=== PATIENT | male | born 1940 | race Caucasian/White ===

== ENCOUNTER 2022-04-13 14:00 | Observation (INO) ==
[2022-04-13] MEDS ORDERED: ONDANSETRON INJ 2 MG/ML 2 ML VIAL IV STA (14:21)
[2022-04-13] MEDS ORDERED: fentaNYL citrate 100 MCG/2 ML VIAL IV STA (14:21)
--- NOTE | 2022-04-13 14:24 | Emergency Department Note ---
History of Present Illness General Chief complaint: Chest Pain Stated complaint: CHEST PAIN Time Seen by Provider: 04/13/22 14:09 Source: patient Mode of arrival: EMS History of Present Illness Provider complaint: Chest pain Onset (ago): hour(s) Location: chest and right Radiation: neck and extremity Pain Consistency: + constant Maximum Pain Intensity: 6 Quality: + other (Intermittently sharp with an undercurrent of indescribable pain "like a flowing stream") Relieved By: + medication (Nitroglycerin and ambulance) Associated symptoms: + chest pain, + cough (Chronic cough for years) and + shortness of breath; no diaphoresis, no fever/chills or no nausea/vomiting This is an 82-year-old male who underwent cardiac catheterization and had a car diac stent placed April 02 in [facility] presenting with chest pain. 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 He describes the pain as a intermittent sharp pain with an undercurrent of pain that is difficult to describe "like a flowing stream." He states it is better after he received nitroglycerin in the ambulance x2. He also received 4 baby aspirin's in the ambulance. He still has some pain left. He had a little bit of shortness of breath with it but no diaphoresis, nausea or lightheadedness. He denies any recent illness, fever, abdominal pain, vomiting, diarrhea or urinary symptoms. He does state that he has a chronic cough which she has had for years and has had evaluated previously by his doctors. He does state that he has had some cramping calf pain and intermittent swelling since his hospitalization initially early March. 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 He does not know the circumstances or the cause of the DVT. He states he does not remember being on blood thinners at the time. He is currently on Brilinta which she has been taking. He denies any prior history of PE. He states the pain he is having today is similar to the pain that he had when he had to have his stent on April 02. It is located on the right side of his chest going down his right arm and into his right neck and jaw. He felt much better after catheterization but his states that he did have a recurrence of this chest pain 5 days ago and went back to [facility]. He was admitted but nothing abnormal was found and he was discharged home. He has not had the chest pain again until today. Allergies Allergy/AdvReac Type Severity Reaction Status Date / Time erythromycin base Allergy Verified 04/13/22 16:19 diazepam [From Valium] AdvReac Verified 04/13/22 16:19 Past Med/Surg History Medical History (Updated 04/13/22 @ 16:32 by Jose Saleh MD) Arthritis Cognitive decline Coronary artery disease DVT (deep venous thrombosis) HTN (hypertension) Sacral nerve stimulator present Surgical History (Updated 04/13/22 @ 16:32 by Jose Saleh MD) History of bowel resection History of coronary artery stent placement History of right hip replacement Social History Smoking Status: Former smoker Tobacco Type: Pipe Feels Safe at Home: Yes Review of Systems See HPI for pertinent positives & negatives. and A total of 10 systems reviewed and were otherwise negative Physical Exam Vital Signs Vital Signs - 24 hr 04/13/22 14:09 04/13/22 14:17 04/13/22 14:55 Temperature 36.7 C Temperature Source Oral Pulse Rate 75 Pulse Rate [Radial] 62 Pulse Rhythm Regular Pulse Rhythm [Radial] Regular Pulse Strength Normal Pulse Strength [Radial] Normal Respiratory Rate 16 17 Respiratory Effort / Characteristics Non-Labored Spontaneous Non-Labored Spontaneous Respiratory Depth Normal Normal Respiratory Pattern Regular Regular Blood Pressure 114/65 Blood Pressure [Right Arm] 129/75 Blood Pressure Mean 81 Blood Pressure Mean [Right Arm] 93 Blood Pressure Position Lying Blood Pressure Position [Right Arm] Lying Pulse Oximetry 99 98 97 Oxygen Delivery Method Room Air Room Air Room Air Sepsis Recent Fever Within 48 Hours No Sepsis New/Unexplained Change in Mental Status No Sepsis Action Taken by Nursing No Action Required 04/13/22 16:15 Temperature Temperature Source Pulse Rate Pulse Rate [Radial] 66 Pulse Rhythm Pulse Rhythm [Radial] Pulse Strength Pulse Strength [Radial] Respiratory Rate 17 Respiratory Effort / Characteristics Non-Labored Spontaneous Respiratory Depth Normal Respiratory Pattern Regular Blood Pressure Blood Pressure [Right Arm] 119/69 Blood Pressure Mean Blood Pressure Mean [Right Arm] 85 Blood Pressure Position Blood Pressure Position [Right Arm] Lying Pulse Oximetry 97 Oxygen Delivery Method Room Air Sepsis Recent Fever Within 48 Hours Sepsis New/Unexplained Change in Mental Status Sepsis Action Taken by Nursing Constitutional: Vital signs reviewed. Eyes: Pupils are equal round reactive to light. Conjunctiva are noninjected. ENT: Pharynx is clear without erythema or exudate. Mucous membranes are moist. Neck supple without meningeal signs. Respiratory: Clear to auscultation bilaterally. Breath sounds are equal bilaterally. Cardiovascular: Regular rate and rhythm. No rubs or gallops. GI: Soft, nondistended and nontender. Bowel sounds are present. Musculoskeletal: No peripheral edema. No lower extremity tenderness. Integumentary: No cyanosis. or jaundice. Neurological: The patient is awake and alert. No focal deficits except hard of hearing. Psychiatric: Normal affect. Not anxious appearing. Course Administered Medications Discontinued Medications Dextrose (Dextrose 50% 50 Ml Syringe) 25 ml IV NOW ONE Stop: 04/13/22 15:34 Last Admin: 04/13/22 15:49 Dose: 25 ml Documented By: JOSE Fentanyl Citrate (Fentanyl Citrate 100 Mcg/2 Ml Vial) 50 mcg IV NOW STA Stop: 04/13/22 14:22 Last Admin: 04/13/22 14:36 Dose: 50 mcg Documented By: JOSE Ioversol (Optiray 300 500ml) 115 ml IV ONCE ONE Stop: 04/13/22 15:22 Last Admin: 04/13/22 15:22 Dose: 115 ml Documented By: BABITA Ondansetron HCl (Ondansetron Inj 2 Mg/Ml 2 Ml Vial) 4 mg IV NOW STA Stop: 04/13/22 14:22 Last Admin: 04/13/22 14:36 Dose: 4 mg Documented By: JOSE Medical Decision Making Differential Diagnosis Unstable angina, ND, stent occlusion, pulmonary embolism, pleurisy, Juan syndrome Medical Records Attestation: I reviewed the patient's medical records. I did perform a limited focused review of portions of the patient's old chart on the electronic medical record. The patient has had no prior visits to this hospital. Home Medications Current Medication List: was personally reviewed by me Laboratory Data Attestation: I reviewed the patient's lab results. Result diagrams: 04/13/22 14:15 04/13/22 14:15 Lab Results 04/13/22 04/13/22 04/13/22 Range/Units 14:15 14:15 14:15 WBC 5.14 (4.8-10.8) K/ul RBC 4.68 (4.63-6.08) M/uL Hgb 14.7 (14.0-18.0) g/dl Hct 44.4 (40.1-51.0) % MCV 94.9 (80.0-100.0) fL MCH 31.4 (25.0-34.0) pg MCHC 33.1 (32.0-36.0) g/dL RDW Std Deviation 49.3 H (36.4-46.3) fL RDW Coeff of Derek 14.2 (11.5-14.5) % Plt Count 140 (130-400) K/uL MPV 10.1 (9.4-12.4) fL Immature Gran % (Auto) 0.4 % Neut % (Auto) 71.3 % Lymph % (Auto) 16.5 % Dade % (Auto) 9.1 % Eos % (Auto) 2.1 % Baso % (Auto) 0.6 % Neut # (Auto) 3.66 (1.4-6.5) K/uL Lymph # (Auto) 0.85 L (1.2-3.4) K/uL Dade # (Auto) 0.47 (0.24-0.82) K/uL Eos # (Auto) 0.11 (0-0.50) K/uL Baso # (Auto) 0.03 (0-0.2) K/uL Immature Gran # (Auto) 0.02 (0.00-0.02) K/uL Platelet Estimate Normal (Normal) PT 11.6 (9.0-12.0) Seconds INR 1.1 (0.9-1.1) APTT 24.5 (21.0-31.0) Seconds PTT Ratio 0.9 Sodium 140 (136-145) mmol/L Potassium 4.2 (3.5-5.1) mmol/L Chloride 109 H (98-107) mmol/L Carbon Dioxide 24 (21-32) mmol/L Anion Gap 7 (3-11) BUN 31 H (6-23) mg/dl Creatinine 1.69 H (0.6-1.4) mg/dl Est Cr Clr Drug Dosing 32.0 ml/min Est GFR ( Amer) 42.6 ml/min Est GFR (Non-Af Amer) 36.7 ml/min BUN/Creatinine Ratio 18.3 (10-20) Glucose 54 L (70-99(Fasting)) mg/dl POC Glucose (70-99) mg/dl Calcium 9.7 (8.5-10.1) mg/dl Total Bilirubin 1.0 (0.2-1.0) mg/dl AST 24 (13-39) U/L ALT 26 (7-52) U/L Alkaline Phosphatase 59 (34-104) U/L Troponin I High Sens 21.9 H (0-20) pg/ml Total Protein 6.0 (6.0-8.3) gm/dl Albumin 4.1 (3.4-5.0) gm/dl Globulin 1.9 L (2.5-4.0) gm/dl Albumin/Globulin Ratio 2.2 H (0.9-2) Lipase 41 (11-82) U/L SARS-CoV-2, RNA, NAAT (NEGATIVE) 04/13/22 04/13/22 04/13/22 Range/Units 14:40 15:43 16:17 WBC (4.8-10.8) K/ul RBC (4.63-6.08) M/uL Hgb (14.0-18.0) g/dl Hct (40.1-51.0) % MCV (80.0-100.0) fL MCH (25.0-34.0) pg MCHC (32.0-36.0) g/dL RDW Std Deviation (36.4-46.3) fL RDW Coeff of Derek (11.5-14.5) % Plt Count (130-400) K/uL MPV (9.4-12.4) fL Immature Gran % (Auto) % Neut % (Auto) % Lymph % (Auto) % Dade % (Auto) % Eos % (Auto) % Baso % (Auto) % Neut # (Auto) (1.4-6.5) K/uL Lymph # (Auto) (1.2-3.4) K/uL Dade # (Auto) (0.24-0.82) K/uL Eos # (Auto) (0-0.50) K/uL Baso # (Auto) (0-0.2) K/uL Immature Gran # (Auto) (0.00-0.02) K/uL Platelet Estimate (Normal) PT (9.0-12.0) Seconds INR (0.9-1.1) APTT (21.0-31.0) Seconds PTT Ratio Sodium (136-145) mmol/L Potassium (3.5-5.1) mmol/L Chloride (98-107) mmol/L Carbon Dioxide (21-32) mmol/L Anion Gap (3-11) BUN (6-23) mg/dl Creatinine (0.6-1.4) mg/dl Est Cr Clr Drug Dosing ml/min Est GFR ( Amer) ml/min Est GFR (Non-Af Amer) ml/min BUN/Creatinine Ratio (10-20) Glucose (70-99(Fasting)) mg/dl POC Glucose 70 116 H (70-99) mg/dl Calcium (8.5-10.1) mg/dl Total Bilirubin (0.2-1.0) mg/dl AST (13-39) U/L ALT (7-52) U/L Alkaline Phosphatase (34-104) U/L Troponin I High Sens (0-20) pg/ml Total Protein (6.0-8.3) gm/dl Albumin (3.4-5.0) gm/dl Globulin (2.5-4.0) gm/dl Albumin/Globulin Ratio (0.9-2) Lipase (11-82) U/L SARS-CoV-2, RNA, NAAT NEGATIVE (NEGATIVE) Imaging Data Radiologist's Impression: Chest CTA 04/13/22 14:21 CHEST CTA for PULMONARY ARTERIES CT DOSE: 293.92 mGy.cm HISTORY: right sided chest pain and shortness of breath eval for PE TECHNIQUE: Multiaxial CT images of the chest were performed following the intravenous administration of contrast to evaluate the pulmonary arteries. Maximal intensity projection images were also obtained. A dose lowering technique was utilized adhering to the principles of ALARA. COMPARISON STUDY: None. FINDINGS: Limited views of the upper abdomen demonstrate a normal spleen and adrenal glands. There is retrograde opacification of the hepatic veins. There are 2 small hypodense lesions within the right hepatic lobe with the largest measuring 12 mm. These favor small cysts. Spinal stimulator leads terminate at the T9 level. The thyroid gland enhances normally. Normal esophagus. No pleural or pericardial effusions. The heart is normal in size. No mediastinal or hilar lymphadenopathy. Normal caliber thoracic aorta with no evidence for dissection. Moderate calcified plaque within the coronary arteries. No filling defects within the pulmonary arteries to suggest a pulmonary embolus. Degenerative changes noted within the bilateral shoulders. No acute fractures identified. No pneumothorax. The central airways are patent. Mild dependent changes seen at the lung bases and a few punctate calcified granulomas. No focal lung consolidations to suggest pneumonia. IMPRESSION: 1. No evidence for a pulmonary embolus. 2. No focal lung consolidations to suggest pneumonia. ACT 112: Negative or not required by law. Electronically signed by: Dawit Jean M.D. 04/13/2022 3:36 PM ECG Data Attestation: I personally reviewed and interpreted this ECG as follows: Indication: + chest pain Rate (beats per minute): 71 Rhythm: + normal sinus ECG [place]: + Normal ECG ST segments: no ST elevation ECG Findings: + PVCs Comparison ECG Date: no prior available MDM Narrative I did evaluate the patient as noted above. The patient is presenting with chest pain on the right side with radiation to his arm and his neck. He just recently had a cardiac stent on April 02. I did attempt to obtain records from [facility] but unfortunately they stated that they would be unable to get any records until at least 5 PM [address] I did place an order for continuous cardiac monitoring. The monitor showed normal sinus rhythm at a rate of 75 bpm with frequent monomorphic PVCs. I did order and personally review the patient's 12-lead EKG as described above. He has no acute ischemic changes consistent with STEMI. He does have frequent PVCs in a trigeminal pattern. I did treat the patient with IV fentanyl and Zofran. I did order and review the patient's blood work as noted in the electronic medical record. CBC is unremarkable without leukocytosis or anemia. Coagulation studies are within normal limits. CMP demonstrates a chloride of 109. His BUN is 31 and his creatinine is 1.69. Glucose is low at 54. High-sensitivity troponin is elevated at 22. I did discuss the test results with the patient and his . I did explain that there is a potential risk to his kidneys given his elevated creatinine. After discussion he and his are agreeable to having the CAT scan. The patient's chest pain is now better. I did discuss the test results with him. He states that he ate breakfast and then had beef noodle soup as well as a funnel cake at lunch. It is unclear why his blood sugar is low. He was given D50 25 mL IV as I did wish to keep him n.p.o. in case the patient may need cardiac catheterization. I did order a CT angiogram of the chest. I did review the images myself as well as the radiology report as described above. There is no evidence of pulmonary embolism. I did order a 2-hour high-sensitivity troponin which is currently pending. I did recommend hospitalization to the patient and his . I did discuss the case with the hospitalist and dependency case manager. The screening COVID test is negative. Impression & Plan Right-sided chest pain, Elevated troponin, Hypoglycemia, Creatinine elevation Discharge Plan Visit Data Chief Complaint: Chest Pain Stated Complaint: CHEST PAIN ED Provider: Ryder Mann Discharge Problem: Right-sided chest pain, Elevated troponin, Hypoglycemia, Creatinine elevation Patient Disposition: Being Evaluated by Hospitalist Forms Stand Alone Forms: My [facility] Referrals Referrals: PCP,NO [Primary Care Provider] -
[2022-04-13 14:37] LABS: INR 1.1 (0.9-1.1); Partial Thromboplastin Ratio 0.9; Partial Thromboplastin Time 24.5 Seconds (21.0-31.0); Prothrombin Time 11.6 Seconds (9.0-12.0)
[2022-04-13 14:50] LABS: Basophils # (auto) 0.03 K/uL (0-0.2); Basophils % (auto) 0.6 %; Eosinophils # (auto) 0.11 K/uL (0-0.50); Eosinophils % (auto) 2.1 %; Hematocrit (blood only) 44.4 % (40.1-51.0); Hemoglobin 14.7 g/dl (14.0-18.0); Immature Granulocytes # (auto) 0.02 K/uL (0.00-0.02); Immature Granulocytes % (auto) 0.4 %; Lymphocytes # (auto) 0.85 K/uL (1.2-3.4); Lymphocytes % (auto) 16.5 %; Mean Corpuscular Hemoglobin 31.4 pg (25.0-34.0); Mean Corpuscular Hgb Conc 33.1 g/dL (32.0-36.0); Mean Corpuscular Volume 94.9 fL (80.0-100.0); Mean Platelet Volume 10.1 fL (9.4-12.4); Monocytes # (auto) 0.47 K/uL (0.24-0.82); Monocytes % (auto) 9.1 %; Neutrophils # (auto) 3.66 K/uL (1.4-6.5); Neutrophils % (auto) 71.3 %; Platelet Count 140 K/uL (130-400); Platelet Estimate Normal (Normal); RDW Coefficient of Variation 14.2 % (11.5-14.5); RDW Standard Deviation 49.3 fL (36.4-46.3); Red Blood Count 4.68 M/uL (4.63-6.08); White Blood Count 5.14 K/ul (4.8-10.8)
[2022-04-13 14:51] LABS: Albumin Globulin Ratio 2.2 (0.9-2); Albumin Level 4.1 gm/dl (3.4-5.0); BUN Creatinine Ratio 18.3 (10-20); Calcium 9.7 mg/dl (8.5-10.1); Est GFR (African American) 42.6 ml/min; Est GFR (Non-African American) 36.7 ml/min; Globulin 1.9 gm/dl (2.5-4.0); Potassium 4.2 mmol/L (3.5-5.1)
[2022-04-13 14:56] LABS: Troponin I High Sensitivity 21.9 pg/ml (0-20)
[2022-04-13] MEDS ORDERED: OPTIRAY 300 500mL IV ONE (15:21)
[2022-04-13] MEDS ORDERED: DEXTROSE 50% 50 ML SYRINGE IV ONE (15:33)
--- NOTE | 2022-04-13 15:38 | CT Scan Report ---
CHEST CTA for PULMONARY ARTERIES CT DOSE: 293.92 mGy.cm HISTORY: right sided chest pain and shortness of breath eval for PE TECHNIQUE: Multiaxial CT images of the chest were performed following the intravenous administration of contrast to evaluate the pulmonary arteries. Maximal intensity projection images were also obtaine d. A dose lowering technique was utilized adhering to the principles of ALARA. COMPARISON STUDY: None. FINDINGS: Limited views of the upper abdomen demonstrate a normal spleen and adrenal glands. There is retrograde opacification of the hepatic veins. There are 2 small hypodense lesions within the right hepatic lobe with the largest measuring 12 mm. These favor small cysts. Spinal stimulator leads termi pj at the T9 level. The thyroid gland enhances normally. Normal esophagus. No pleural or pericardia l effusions. The heart is normal in size. No mediastinal or hilar lymphadenopathy. Normal caliber tho racic aorta with no evidence for dissection. Moderate calcified plaque within the coronary arteries. No filling defects within the pulmonary arteries to suggest a pulmonary embolus. Degenerative changes noted within the bilateral shoulders. No acute fractures identified. No pneumothorax. The central ai rways are patent. Mild dependent changes seen at the lung bases and a few punctate calcified granulom as. No focal lung consolidations to suggest pneumonia. IMPRESSION: 1. No evidence for a pulmonary embolus. 2. No focal lung consolidations to suggest pneumonia. ACT 112: Negative or not required by law. Electronically signed by: Dawit Jean M.D. 04/13/2022 3:36 PM
--- NOTE | 2022-04-13 16:03 | History & Physical Report ---
Date of Service April 13, 2022 Assessment & Plan (1) Right-sided chest pain: Plan: Srinivasa is an 82-year-old male who presents with recurrent right chest pain worse on palpation which occurred after eating a funnel cake while out at a catholic reunion who had similar pain earlier in the month and who underwent PCI for an 80% blockage in [place] with 1 stent placement and subsequent dual antiplatelet therapy. Patient is a very limited historian, and does not know medications. Attempting to obtain med reconciliation from [place] records. Chest pain, history of CAD with PCI; suspect costochondritis Cath record obtained. Left main coronary with mild diffuse irregularity without flow-limiting lesions, LAD with 75 to 80% mid segment stenosis, left circumflex dominant with multiple marginal branches mild diffuse disease, right coronary small size nondominant with diffuse irregularity. Successful PCI with JAMES to mid LAD. Patient discharged to continue aspirin and Brilinta, metoprolol 25 mg succinate daily, atorvastatin 40 mg nightly Continue Plavix 75 mg daily, aspirin 81 mg daily On admission patient does have recurrent right chest wall and shoulder pain, this is reproducible on palpation. He reports that there is some shortness of breath with this, on further clarification he reports that he feels that he exasperation can worsen his pain. Patient on Celebrex chronically for arthritis pain, discontinued Voltaren, Lidoderm patch as needed EKG on admission with Bi/trigeminy, no territorial ST wave changes Minimal elevation of high-sensitivity troponin on admission, trended (2) Elevated troponin: Plan: Low level,? Demand versus residual following stenting. Patient pain-free assessment. Chest pain eval as otherwise noted (3) DVT (deep venous thrombosis): Plan: Patient reports history of this, but is a poor historian. Notes a blood clot in his leg but they put him on aspirin for, reports he was on Xarelto for DVT prophylaxis after right hip surgery but has never been on a prolonged course or full dose. Does have right calf pain We will obtain right lower extremity Doppler for clarification. CTA with no PEs. By history may have been a superficial thrombosis, if true DVT this is of adequately treated with his antiplatelet medications and would need anticoagulation (4) Coronary artery disease: Plan: As noted (5) Arthritis: Plan: Patient takes Celebrex chronically, discontinued due to heart concerns Continue Tylenol, Voltaren, lidocaine. (6) Pancreatic insufficiency: Plan: With history of bowel resection for recurrent obstruction. Continue Creon. No acute exacerbation Plan DVT prophylaxis: Lovenox Diet: Heart healthy Disposition: Medical telemetry for cardiac eval/troponin trend CODE STATUS: Full code, discussed with patient on admission. Would not want prolonged ventilation, but would want CPR/intubation temporarily with further decision-making by his family if inconsistent with a quality of life he would want History of Present Illness Primary Care Provider: NO PCP Srinivasa Dumont is a 82-year-old male with a past medical history of CAD and PCI 04/02/2022 who presents with recurrent chest pain. Had an episode of chest pain this morning, received 4 crushed aspirin and nitro x2 with improvement but not resolution of pain. Had some associated dyspnea but no diaphoresis. On ER evaluation: No leukocytosis, hemoglobin 14.7, creatinine is elevated 1.69 with unclear baseline, high-sensitivity troponin 21.9, COVID is negative, CTA of the chest shows no evidence of PE and no consolidations consistent with pneumonia ID Apr 02 in [place]. Similar chest pain to current presentation. R sided and into neck/jaw. [place] improved after cath, 5 days ago had 1 recurrent episode of pain. Seen in [place] for overnight overservation, dc home. 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 ASA/nitro with improvement but not resolution of pain. First trop mildly elevated 0.22. Second pending. EKG: trigeminy Low BSG, no antiglycemics Brilinta/ASA, denies hx of DVT ?Xarelto last filled November 2021 Pain free now RIGHT hip replacement a few months ago, still working on strengthening. Seen at bedside Srinivasa reports around the first of the month had symptoms of chest pain and shoudler pain and was seeni [facility] and hade an 80% blockage and had PCI in [place] with placement of 1 stent. Had complete resolution of his pain after this. Last Friday (5 days ago) had some pains in his R chest in the same spot as his original pain. Went back to [place] ER and had overnight observation with trended blood work and an EKG. After overnight observation had a repeat EKG and was discharged home. Today he was at a catholic gathering around noon in their camp. Has some difficulty with strength follow a hip replacement earlier in the year which is normal,but when walking had an episode of R chest pain simialr to prior episodes and felt more winded than normal and had to sit down. Normally has been able to tolerate physical therapy for his hip OK. After eating a funnel cake his pain started as described. When sitting SoB improved, but R chest pain persisted. Called EMS and was lang tto [facility]. Got 325 ASA and 2x nitro which improved but did not resolve the pain, some post-dose hypotension so was given fentanyl which resolved his pain. At time of bedside assessment his pain has re solved. Pain is TTP Medical History: Reviewed Medications: Reviewed. Poor historian of medications, does not have a list. ASA/Brilinta, doxycycline for recurrent scalp infections/dermatitis, creon for pancreatic insufficiency, celebrex (for general pain), gabapentin. Was on Xarelto in november for DVT prophylaxis after hip surgery. Reports on aspirin for a blood clot in R leg. Ropinorole for restless legs. few since the cath that he does not remember. Metoprolol sounds familiar. Surgical History: Reviewed. Hx of colectomy for recurrent blockages/stenosis/SBOs. Allergies: Reviewed. Allergic valium erythe Social History: No tobacco product use, rare social alcohol use. Code Status: FUll Code Allergies Allergy/AdvReac Type Severity Reaction Status Date / Time erythromycin base Allergy Verified 04/13/22 16:19 diazepam [From Valium] AdvReac Verified 04/13/22 16:19 Past Med/Surg History Medical History (Updated 04/13/22 @ 16:38 by Jose Saleh MD) Arthritis Cognitive decline Coronary artery disease DVT (deep venous thrombosis) HTN (hypertension) Sacral nerve stimulator present Surgical History (Updated 04/13/22 @ 16:32 by Jose Saleh MD) History of bowel resection History of coronary artery stent placement History of right hip replacement Social History Smoking Status: Former smoker Tobacco Type: Pipe Feels Safe at Home: Yes Review of Systems Review of Systems: All systems reviewed & are unremarkable except as noted in Subjective Physical Exam Physical Exam: General: A&Ox3. NAD. Cooperative. Some memory loss/dementia appreciated, and frequent redirection required. History collected with the assistance of patient's was at bedside HEENT: Atraumatic, normocephalic. Hard of hearing, hearing aids in, visual acuity grossly intact Pulm: CTAB A&P. -wheezes, -rales, -rhonchi. Symmetrical chest rise. No increase in work of breathing. No respiratory distress. Cardiac: RRR, -mrg. Radial pulses intact and symmetrical. Patient is focally tender overlying the right chest wall and shoulder and palpation reproduces the pain he had felt earlier today. He reports this is also the same pain that he feels with deep breath, which is again worsened on palpation. Abdominal: Nontender, nondistended, soft. BS present. Extremities: Warm, dry. Moving all extremities equally. Sensation soft touch intact in hands and feet without asymmetry. Right calf 1 cm asymmetry. Dorsiflexion/plantarflexion and recovery rn strength intact. Results & Data Results & Data ([facility]) Vital Signs (Past 12 Hours) Vital Signs Temp Pulse Pulse Resp BP BP Pulse Ox 04/13/22 14:55 62 17 129/75 97 04/13/22 14:17 98 04/13/22 14:09 36.7 C 75 16 114/65 99 O2 Del Method 04/13/22 14:55 Room Air 04/13/22 14:17 Room Air 04/13/22 14:09 Room Air PG Care Time/CCT Total # of Minutes Spent Total Time Spent with Patient: Total time spent is greater than 50% in coordination of care (as documented) at patient's floor/unit and/or counseling patient: Coding Level of Care Code INT OBSERVATION CARE 50M LVL 2 Diagnoses Right-sided chest pain R07.9 Elevated troponin R77.8 DVT (deep venous thrombosis) I82.409 Coronary artery disease I25.10 Arthritis M19.90 Pancreatic insufficiency K86.89
[2022-04-13] MEDS ORDERED: ACETAMINOPHEN 325 MG TAB PO PRN (18:37)
[2022-04-13] MEDS ORDERED: DICLOFENAC SOD 1% GEL 100 GM TUBE EXT PRN (18:37)
[2022-04-13] MEDS ORDERED: MAGNESIUM HYDROXIDE SUSP 30 ML UDC PO PRN (18:37)
[2022-04-13] MEDS ORDERED: ALBUTEROL HFA 8 GM INHALER INH PRN (18:53)
[2022-04-13] MEDS: METOPROLOL SUCC 25MG EXT REL TAB PO SCH (19:35)
[2022-04-13] MEDS: TICAGRELOR 90 MG TAB PO SCH (20:55)
[2022-04-13] MEDS ORDERED: LIDOCAINE 5% 1 PATCH TD SCH (21:00)
[2022-04-13] MEDS ORDERED: ATORVASTATIN 40 MG TAB PO SCH (21:00)
[2022-04-13] MEDS ORDERED: rOPINIRole HCL 2 MG TABLET PO SCH (21:00)
[2022-04-14 01:16] LABS: Basophils # (auto) 0.02 K/uL (0-0.2); Basophils % (auto) 0.3 %; Eosinophils # (auto) 0.14 K/uL (0-0.50); Eosinophils % (auto) 2.2 %; Hematocrit (blood only) 44.9 % (40.1-51.0); Hemoglobin 14.8 g/dl (14.0-18.0); Immature Granulocytes # (auto) 0.02 K/uL (0.00-0.02); Immature Granulocytes % (auto) 0.3 %; Lymphocytes # (auto) 1.27 K/uL (1.2-3.4); Lymphocytes % (auto) 19.8 %; Mean Corpuscular Hemoglobin 30.8 pg (25.0-34.0); Mean Corpuscular Volume 93.5 fL (80.0-100.0); Mean Platelet Volume 10.5 fL (9.4-12.4); Monocytes # (auto) 0.61 K/uL (0.24-0.82); Monocytes % (auto) 9.5 %; Neutrophils # (auto) 4.34 K/uL (1.4-6.5); Neutrophils % (auto) 67.9 %; Platelet Count 129 K/uL (130-400); RDW Coefficient of Variation 14.3 % (11.5-14.5); RDW Standard Deviation 49.7 fL (36.4-46.3)
[2022-04-14 01:42] LABS: BUN Creatinine Ratio 16.5 (10-20); Calcium 9.7 mg/dl (8.5-10.1); Creatinine Clr Calc Pharmacy 35.2 ml/min; Est GFR (African American) 44.2 ml/min; Est GFR (Non-African American) 38.1 ml/min; Potassium 4.7 mmol/L (3.5-5.1)
[2022-04-14] MEDS ORDERED: ONDANSETRON INJ 2 MG/ML 2 ML VIAL IV STA (05:25)
--- NOTE | 2022-04-14 06:09 | Ultrasound Report ---
RIGHT LOWER EXTREMITY VENOUS DOPPLER HISTORY: Right leg swelling, pain COMPARISON STUDY: None. FINDINGS: There is normal compressibility, flow, and augmentation within the right lower extremity de ep venous system. IMPRESSION: No DVT within the right lower extremity ACT 112: Negative or not required by law. Electronically signed by: Dawit Jean M.D. 04/14/2022 6:08 AM
--- NOTE | 2022-04-14 07:26 | Hospitalist Progress Note ---
Date of Service April 14, 2022 Assessment & Plan (1) Right-sided chest pain: Plan: 82 y/o male here for eval of recurrent right chest pain worse on palpation, which started after eating a funnel cake while out a [employer] function (04/13) - similar to CP he had earlier in the month prior to having PCI for 80% blockage in [place] on 04/02 with one stent placed and dual antiplatelet therapy initiated - now without pain and doing well. #Chest pain Patient has a history of CAD s/p PCI with stent placement on 04/02/22. Suspicion for costochondritis due to the reproducibility of the pain with palpation. EKG showed bi/trigeminy without territorial ST wave changes. hsTrop minimally elevated Cath record obtained. Left main coronary with mild diffuse irregularity without flow-limiting lesions, LAD with 75 to 80% mid segment stenosis, left circumflex dominant with multiple marginal branches mild diffuse disease, right coronary small size nondominant with diffuse irregularity. Successful PCI with JAMES to mid LAD. Patient d/c on aspirin and Brilinta, metoprolol 25 mg succinate daily, atorvastatin 40 mg nightly [] continue plavix 75 mg QD, ASA 81 mg QD [] trend trops 21.9 --> 23.4 --> 33.0 --> 30.1 --> 19.7; peaked at 33.0 #Elevated troponin hsTrop minimally elevated peaked at 33.0. Demand versus residual following stenting. Patient pain-free on assessment. #Hx of DVT Patient has a hx of DVT, but cannot remember the specifics - notes a previous blood clot in his leg that he was put on ASA for, was on Xarelto for DVT ppx after RTHR, but never a prolonged course. He currently has right calf pain. CTA did not show evidence of PEs. Could have been a superficial thrombosis, which would require anticoagulation not antiplatelet. [] RLE Doppler - no signs of DVT #Arthritis Patient has a history of arthritis previously treated with Celebrex - recently d/c due to heart concerns. [] Continue Tylenol, Voltaren, lidocaine. #CAD See above. #Pancreatic insufficiency Patient has a history of pancreatic insufficiency with a history of bowel resection for recurrent obstruction. Continue Creon - patient requesting 72,000 with meals instead of 10,050 TID. No acute exacerbation DVT prophylaxis: Lovenox Diet: Heart healthy Disposition: [facility] CODE STATUS: Full code, discussed with patient on admission. Would not want prolonged ventilation, but would want CPR/intubation temporarily with further decision-making by his family if inconsistent with a quality of life he would want (2) Elevated troponin: (3) DVT (deep venous thrombosis): (4) Coronary artery disease: (5) Arthritis: (6) Pancreatic insufficiency: Admission and Anticipated Discharge Date Admission Date: April 13, 2022 Subjective Patient notes that he is doing well today. No new instances of CP. He notes occasional burning and tenderness right parasternal chest. No other symptoms today. He is accompanied by his who assists in obtaining the subjective history. Review of Systems Review of Systems: See above. Physical Exam Physical Exam: General: A&Ox3. NAD. Cooperative. Some memory loss/dementia appreciated HEENT: Atraumatic, normocephalic. Hard of hearing, hearing aids in Pulm: CTAB. -wheezes, -rales, -rhonchi. Symmetrical chest rise. No increase in work of breathing. No respiratory distress. Cardiac: RRR, -mrg. Radial pulses intact and symmetrical. Patient is mildly focally tender overlying the right chest wall and shoulder and palpation reproduces the pain he had felt earlier today - improved from previous. No calf tenderness. No LE edema Abdominal: Nontender, nondistended, soft - ileostomy in place Extremities: Warm, dry. Moving all extremities equally. Results & Data Results & Data ([facility]) Vital Signs (Past 12 Hours) Vital Signs Temp Pulse Pulse Pulse Resp BP BP 04/14/22 04:00 57 L 20 119/65 04/14/22 03:03 72 16 04/13/22 23:00 50 L 16 04/13/22 22:16 37 C 63 20 122/73 04/13/22 20:00 36.7 C 50 L 121/76 Pulse Ox O2 Del Method FiO2 04/14/22 04:00 98 CPAP 04/14/22 03:03 98 21 04/13/22 23:00 94 21 04/13/22 22:16 96 Room Air 04/13/22 20:00 97 Room Air Laboratory Results 04/14/22 04/14/22 04/14/22 Range/Units 06:47 00:56 00:56 WBC 6.40 (4.8-10.8) K/ul RBC 4.80 (4.63-6.08) M/uL Hgb 14.8 (14.0-18.0) g/dl Hct 44.9 (40.1-51.0) % MCV 93.5 (80.0-100.0) fL MCH 30.8 (25.0-34.0) pg MCHC 33.0 (32.0-36.0) g/dL RDW Std Deviation 49.7 H (36.4-46.3) fL RDW Coeff of Derek 14.3 (11.5-14.5) % Plt Count 129 L (130-400) K/uL MPV 10.5 (9.4-12.4) fL Immature Gran % (Auto) 0.3 % Neut % (Auto) 67.9 % Lymph % (Auto) 19.8 % Craig % (Auto) 9.5 % Eos % (Auto) 2.2 % Baso % (Auto) 0.3 % Neut # (Auto) 4.34 (1.4-6.5) K/uL Lymph # (Auto) 1.27 (1.2-3.4) K/uL Craig # (Auto) 0.61 (0.24-0.82) K/uL Eos # (Auto) 0.14 (0-0.50) K/uL Baso # (Auto) 0.02 (0-0.2) K/uL Immature Gran # (Auto) 0.02 (0.00-0.02) K/uL Platelet Estimate (Normal) PT (9.0-12.0) Seconds INR (0.9-1.1) APTT (21.0-31.0) Seconds PTT Ratio Sodium 141 (136-145) mmol/L Potassium 4.7 (3.5-5.1) mmol/L Chloride 110 H (98-107) mmol/L Carbon Dioxide 26 (21-32) mmol/L Anion Gap 5 (3-11) BUN 27 H (6-23) mg/dl Creatinine 1.64 H (0.6-1.4) mg/dl Est Cr Clr Drug Dosing 35.2 ml/min Est GFR ( Amer) 44.2 ml/min Est GFR (Non-Af Amer) 38.1 ml/min BUN/Creatinine Ratio 16.5 (10-20) Glucose 92 (70-99(Fasting)) mg/dl POC Glucose (70-99) mg/dl Calcium 9.7 (8.5-10.1) mg/dl Total Bilirubin (0.2-1.0) mg/dl AST (13-39) U/L ALT (7-52) U/L Alkaline Phosphatase (34-104) U/L Troponin I High Sens 30.1 H (0-20) pg/ml Total Protein (6.0-8.3) gm/dl Albumin (3.4-5.0) gm/dl Globulin (2.5-4.0) gm/dl Albumin/Globulin Ratio (0.9-2) Lipase (11-82) U/L SARS-CoV-2, RNA, NAAT (NEGATIVE) 04/14/22 04/13/22 04/13/22 Range/Units 00:56 17:09 16:17 WBC (4.8-10.8) K/ul RBC (4.63-6.08) M/uL Hgb (14.0-18.0) g/dl Hct (40.1-51.0) % MCV (80.0-100.0) fL MCH (25.0-34.0) pg MCHC (32.0-36.0) g/dL RDW Std Deviation (36.4-46.3) fL RDW Coeff of Derek (11.5-14.5) % Plt Count (130-400) K/uL MPV (9.4-12.4) fL Immature Gran % (Auto) % Neut % (Auto) % Lymph % (Auto) % Craig % (Auto) % Eos % (Auto) % Baso % (Auto) % Neut # (Auto) (1.4-6.5) K/uL Lymph # (Auto) (1.2-3.4) K/uL Craig # (Auto) (0.24-0.82) K/uL Eos # (Auto) (0-0.50) K/uL Baso # (Auto) (0-0.2) K/uL Immature Gran # (Auto) (0.00-0.02) K/uL Platelet Estimate (Normal) PT (9.0-12.0) Seconds INR (0.9-1.1) APTT (21.0-31.0) Seconds PTT Ratio Sodium (136-145) mmol/L Potassium (3.5-5.1) mmol/L Chloride (98-107) mmol/L Carbon Dioxide (21-32) mmol/L Anion Gap (3-11) BUN (6-23) mg/dl Creatinine (0.6-1.4) mg/dl Est Cr Clr Drug Dosing ml/min Est GFR ( Amer) ml/min Est GFR (Non-Af Amer) ml/min BUN/Creatinine Ratio (10-20) Glucose (70-99(Fasting)) mg/dl POC Glucose 116 H (70-99) mg/dl Calcium (8.5-10.1) mg/dl Total Bilirubin (0.2-1.0) mg/dl AST (13-39) U/L ALT (7-52) U/L Alkaline Phosphatase (34-104) U/L Troponin I High Sens 33.0 H 23.4 H (0-20) pg/ml Total Protein (6.0-8.3) gm/dl Albumin (3.4-5.0) gm/dl Globulin (2.5-4.0) gm/dl Albumin/Globulin Ratio (0.9-2) Lipase (11-82) U/L SARS-CoV-2, RNA, NAAT (NEGATIVE) 04/13/22 04/13/22 04/13/22 Range/Units 15:43 14:40 14:15 WBC (4.8-10.8) K/ul RBC (4.63-6.08) M/uL Hgb (14.0-18.0) g/dl Hct (40.1-51.0) % MCV (80.0-100.0) fL MCH (25.0-34.0) pg MCHC (32.0-36.0) g/dL RDW Std Deviation (36.4-46.3) fL RDW Coeff of Derek (11.5-14.5) % Plt Count (130-400) K/uL MPV (9.4-12.4) fL Immature Gran % (Auto) % Neut % (Auto) % Lymph % (Auto) % Craig % (Auto) % Eos % (Auto) % Baso % (Auto) % Neut # (Auto) (1.4-6.5) K/uL Lymph # (Auto) (1.2-3.4) K/uL Craig # (Auto) (0.24-0.82) K/uL Eos # (Auto) (0-0.50) K/uL Baso # (Auto) (0-0.2) K/uL Immature Gran # (Auto) (0.00-0.02) K/uL Platelet Estimate (Normal) PT 11.6 (9.0-12.0) Seconds INR 1.1 (0.9-1.1) APTT 24.5 (21.0-31.0) Seconds PTT Ratio 0.9 Sodium (136-145) mmol/L Potassium (3.5-5.1) mmol/L Chloride (98-107) mmol/L Carbon Dioxide (21-32) mmol/L Anion Gap (3-11) BUN (6-23) mg/dl Creatinine (0.6-1.4) mg/dl Est Cr Clr Drug Dosing ml/min Est GFR ( Amer) ml/min Est GFR (Non-Af Amer) ml/min BUN/Creatinine Ratio (10-20) Glucose (70-99(Fasting)) mg/dl POC Glucose 70 (70-99) mg/dl Calcium (8.5-10.1) mg/dl Total Bilirubin (0.2-1.0) mg/dl AST (13-39) U/L ALT (7-52) U/L Alkaline Phosphatase (34-104) U/L Troponin I High Sens (0-20) pg/ml Total Protein (6.0-8.3) gm/dl Albumin (3.4-5.0) gm/dl Globulin (2.5-4.0) gm/dl Albumin/Globulin Ratio (0.9-2) Lipase (11-82) U/L SARS-CoV-2, RNA, NAAT NEGATIVE (NEGATIVE) 04/13/22 04/13/22 Range/Units 14:15 14:15 WBC 5.14 (4.8-10.8) K/ul RBC 4.68 (4.63-6.08) M/uL Hgb 14.7 (14.0-18.0) g/dl Hct 44.4 (40.1-51.0) % MCV 94.9 (80.0-100.0) fL MCH 31.4 (25.0-34.0) pg MCHC 33.1 (32.0-36.0) g/dL RDW Std Deviation 49.3 H (36.4-46.3) fL RDW Coeff of Derek 14.2 (11.5-14.5) % Plt Count 140 (130-400) K/uL MPV 10.1 (9.4-12.4) fL Immature Gran % (Auto) 0.4 % Neut % (Auto) 71.3 % Lymph % (Auto) 16.5 % Craig % (Auto) 9.1 % Eos % (Auto) 2.1 % Baso % (Auto) 0.6 % Neut # (Auto) 3.66 (1.4-6.5) K/uL Lymph # (Auto) 0.85 L (1.2-3.4) K/uL Craig # (Auto) 0.47 (0.24-0.82) K/uL Eos # (Auto) 0.11 (0-0.50) K/uL Baso # (Auto) 0.03 (0-0.2) K/uL Immature Gran # (Auto) 0.02 (0.00-0.02) K/uL Platelet Estimate Normal (Normal) PT (9.0-12.0) Seconds INR (0.9-1.1) APTT (21.0-31.0) Seconds PTT Ratio Sodium 140 (136-145) mmol/L Potassium 4.2 (3.5-5.1) mmol/L Chloride 109 H (98-107) mmol/L Carbon Dioxide 24 (21-32) mmol/L Anion Gap 7 (3-11) BUN 31 H (6-23) mg/dl Creatinine 1.69 H (0.6-1.4) mg/dl Est Cr Clr Drug Dosing 32.0 ml/min Est GFR ( Amer) 42.6 ml/min Est GFR (Non-Af Amer) 36.7 ml/min BUN/Creatinine Ratio 18.3 (10-20) Glucose 54 L (70-99(Fasting)) mg/dl POC Glucose (70-99) mg/dl Calcium 9.7 (8.5-10.1) mg/dl Total Bilirubin 1.0 (0.2-1.0) mg/dl AST 24 (13-39) U/L ALT 26 (7-52) U/L Alkaline Phosphatase 59 (34-104) U/L Troponin I High Sens 21.9 H (0-20) pg/ml Total Protein 6.0 (6.0-8.3) gm/dl Albumin 4.1 (3.4-5.0) gm/dl Globulin 1.9 L (2.5-4.0) gm/dl Albumin/Globulin Ratio 2.2 H (0.9-2) Lipase 41 (11-82) U/L SARS-CoV-2, RNA, NAAT (NEGATIVE) Diagnostic Findings Chest CTA 04/13/22 14:21 CHEST CTA for PULMONARY ARTERIES CT DOSE: 293.92 mGy.cm HISTORY: right sided chest pain and shortness of breath eval for PE TECHNIQUE: Multiaxial CT images of the chest were performed following the intravenous administration of contrast to evaluate the pulmonary arteries. Maximal intensity projection images were also obtained. A dose lowering technique was utilized adhering to the principles of ALARA. COMPARISON STUDY: None. FINDINGS: Limited views of the upper abdomen demonstrate a normal spleen and adrenal glands. There is retrograde opacification of the hepatic veins. There are 2 small hypodense lesions within the right hepatic lobe with the largest measuring 12 mm. These favor small cysts. Spinal stimulator leads terminate at the T9 level. The thyroid gland enhances normally. Normal esophagus. No pleural or pericardial effusions. The heart is normal in size. No mediastinal or hilar lymphadenopathy. Normal caliber thoracic aorta with no evidence for dissection. Moderate calcified plaque within the coronary arteries. No filling defects within the pulmonary arteries to suggest a pulmonary embolus. Degenerative changes noted within the bilateral shoulders. No acute fractures identified. No pneumothorax. The central airways are patent. Mild dependent changes seen at the lung bases and a few punctate calcified granulomas. No focal lung consolidations to suggest pneumonia. IMPRESSION: 1. No evidence for a pulmonary embolus. 2. No focal lung consolidations to suggest pneumonia. Venous Doppler Study 04/13/22 18:37 RIGHT LOWER EXTREMITY VENOUS DOPPLER HISTORY: Right leg swelling, pain COMPARISON STUDY: None. FINDINGS: There is normal compressibility, flow, and augmentation within the right lower extremity deep venous system. IMPRESSION: No DVT within the right lower extremity
[2022-04-14] MEDS: PANCREAZE (LIPASE 10,500U) CAP PO SCH ×2 (08:33→12:18)
[2022-04-14] MEDS: TICAGRELOR 90 MG TAB PO SCH (08:36)
[2022-04-14] MEDS: METOPROLOL SUCC 25MG EXT REL TAB PO SCH (08:37)
[2022-04-14] MEDS ORDERED: GABAPENTIN 300 MG CAP PO SCH (09:00)
[2022-04-14] MEDS ORDERED: CALCIUM 600MG + VIT D 400 IU TAB PO SCH (09:00)
[2022-04-14] MEDS ORDERED: DOXYCYCLINE HYCLATE 100 MG CAP PO SCH (09:00)
[2022-04-14] MEDS ORDERED: ASPIRIN 81 MG ECTAB PO SCH (09:00)
--- NOTE | 2022-04-14 12:23 | Electrocardiogram Report ---
Test Reason : Blood Pressure : / mmHG Vent. Rate : 071 BPM Atrial Rate : 071 BPM P-R Int : 166 ms QRS Dur : 086 ms QT Int : 396 ms P-R-T Axes : 059 053 059 degrees QTc Int : 430 ms Poor data quality, interpretation may be adversely affected Sinus rhythm with frequent Premature ventricular complexes Possible Left atrial enlargement Septal infarct , age undetermined Abnormal ECG No previous ECGs available Confirmed by Rickey Hall ([id number]) on 04/14/2022 12:23:27 PM Referred By: Confirmed By:Rickey Hall
--- NOTE | 2022-04-14 14:43 | Discharge Summary ---
Date of Service April 14, 2022 Admission HPI Per Admitting Provider Srinivasa Dumont is a 82-year-old male with a past medical history of CAD and PCI 04/02/2022 who presents with recurrent chest pain. Had an episode of chest pain this morning, received 4 crushed aspirin and nitro x2 with improvement but not resolution of pain. Had some associated dyspnea but no diaphoresis. On ER evaluation: No leukocytosis, hemoglobin 14.7, creatinine is elevated 1.69 with unclear baseline, high-sensitivity troponin 21.9, COVID is negative, CTA of the chest shows no evidence of PE and no consolidations consistent with pneumonia [place] Apr 02 in [place]. Similar chest pain to current presentation. R sided and into neck/jaw. [place] improved after cath, 5 days ago had 1 recurrent episode of pain. Seen in [place] for overnight overservation, dc home. 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 ASA/nitro with improvement but not resolution of pain. First trop mildly elevated 0.22. Second pending. EKG: trigeminy Low BSG, no antiglycemics Brilinta/ASA, denies hx of DVT ?Xarelto last filled November 2021 Pain free now RIGHT hip replacement a few months ago, still working on strengthening. Seen at bedside Srinivasa reports around the first of the month had symptoms of chest pain and shoudler pain and was seeni [facility] [place] and hade an 80% blockage and had PCI in [place] with placement of 1 stent. Had complete resolution of his pain after this. Last Friday (5 days ago) had some pains in his R chest in the same spot as his original pain. Went back to [place] ER and had overnight observation with trended blood work and an EKG. After overnight observation had a repeat EKG and was discharged home. Today he was at a tenriism gathering around noon in their camp. Has some difficulty with strength follow a hip replacement earlier in the year which is normal,but when walking had an episode of R chest pain simialr to prior episodes and felt more winded than normal and had to sit down. Normally has been able to tolerate physical therapy for his hip OK. After eating a funnel cake his pain started as described. When sitting SoB improved, but R chest pain persisted. Called EMS and was lang tto [facility]. Got 325 ASA and 2x nitro which improved but did not resolve the pain, some post-dose hypotension so was given fentanyl which resolved his pain. At time of bedside assessment his pain has resolved. Pain is TTP Medical History: Reviewed Medications: Reviewed. Poor historian of medications, does not have a list. ASA/Brilinta, doxycycline for recurrent scalp infections/dermatitis, creon for pancreatic insufficiency, celebrex (for general pain), gabapentin. Was on Xarelto in november for DVT prophylaxis after hip surgery. Reports on aspirin for a blood clot in R leg. Ropinorole for restless legs. few since the cath that he does not remember. Metoprolol sounds familiar. Surgical History: Reviewed. Hx of colectomy for recurrent blockages/stenosis/SBOs. Allergies: Reviewed. Allergic valium erythe Social History: No tobacco product use, rare social alcohol use. Code Status: FUll Code Admission Exam Per Admitting Provider General: A&Ox3. NAD. Cooperative. Some memory loss/dementia appreciated, and frequent redirection required. History collected with the assistance of patient's was at bedside HEENT: Atraumatic, normocephalic. Hard of hearing, hearing aids in, visual acuity grossly intact Pulm: CTAB A&P. -wheezes, -rales, -rhonchi. Symmetrical chest rise. No increase in work of breathing. No respiratory distress. Cardiac: RRR, -mrg. Radial pulses intact and symmetrical. Patient is focally tender overlying the right chest wall and shoulder and palpation reproduces the pain he had felt earlier today. He reports this is also the same pain that he feels with deep breath, which is again worsened on palpation. Abdominal: Nontender, nondistended, soft. BS present. Extremities: Warm, dry. Moving all extremities equally. Sensation soft touch intact in hands and feet without asymmetry. Right calf 1 cm asymmetry. Dorsiflexion/plantarflexion and nocturnist strength intact. Principal Diagnosis Costochondritis Discharge Exam General: A&Ox3. NAD. Cooperative. Some memory loss/dementia appreciated HEENT: Atraumatic, normocephalic. Hard of hearing, hearing aids in Pulm: CTAB. -wheezes, -rales, -rhonchi. Symmetrical chest rise. No increase in work of breathing. No respiratory distress. Cardiac: RRR, -mrg. Radial pulses intact and symmetrical. Patient is mildly focally tender overlying the right chest wall and shoulder and palpation reproduces the pain he had felt - improved from previous. No calf tenderness. No LE edema Abdominal: Nontender, nondistended, soft - ileostomy in place Extremities: Warm, dry. Moving all extremities equally. Discharge Data Allergies Allergy/AdvReac Type Severity Reaction Status Date / Time erythromycin base Allergy Verified 04/13/22 16:19 diazepam [From Valium] AdvReac Verified 04/13/22 16:19 Consultations 04/13/22 16:02 ED Decision to Admit Stat Ordered Studies 04/13/22 14:21 CT angio chest PE protocol Stat 04/13/22 18:37 US venous doppler LE RT Urgent Chest CTA 04/13/22 14:21 CHEST CTA for PULMONARY ARTERIES CT DOSE: 293.92 mGy.cm HISTORY: right sided chest pain and shortness of breath eval for PE TECHNIQUE: Multiaxial CT images of the chest were performed following the intravenous administration of contrast to evaluate the pulmonary arteries. Maximal intensity projection images were also obtained. A dose lowering technique was utilized adhering to the principles of ALARA. COMPARISON STUDY: None. FINDINGS: Limited views of the upper abdomen demonstrate a normal spleen and adrenal glands. There is retrograde opacification of the hepatic veins. There are 2 small hypodense lesions within the right hepatic lobe with the largest measuring 12 mm. These favor small cysts. Spinal stimulator leads terminate at the T9 level. The thyroid gland enhances normally. Normal esophagus. No pleural or pericardial effusions. The heart is normal in size. No mediastinal or hilar lymphadenopathy. Normal caliber thoracic aorta with no evidence for dissection. Moderate calcified plaque within the coronary arteries. No filling defects within the pulmonary arteries to suggest a pulmonary embolus. Degenerative changes noted within the bilateral shoulders. No acute fractures identified. No pneumothorax. The central airways are patent. Mild dependent changes seen at the lung bases and a few punctate calcified granulomas. No focal lung consolidations to suggest pneumonia. IMPRESSION: 1. No evidence for a pulmonary embolus. 2. No focal lung consolidations to suggest pneumonia. Venous Doppler Study 04/13/22 18:37 RIGHT LOWER EXTREMITY VENOUS DOPPLER HISTORY: Right leg swelling, pain COMPARISON STUDY: None. FINDINGS: There is normal compressibility, flow, and augmentation within the right lower extremity deep venous system. IMPRESSION: No DVT within the right lower extremity 04/14/22 04/14/22 04/14/22 Range/Units 12:33 06:47 00:56 WBC (4.8-10.8) K/ul RBC (4.63-6.08) M/uL Hgb (14.0-18.0) g/dl Hct (40.1-51.0) % MCV (80.0-100.0) fL MCH (25.0-34.0) pg MCHC (32.0-36.0) g/dL RDW Std Deviation (36.4-46.3) fL RDW Coeff of Derek (11.5-14.5) % Plt Count (130-400) K/uL MPV (9.4-12.4) fL Immature Gran % (Auto) % Neut % (Auto) % Lymph % (Auto) % [place] % (Auto) % Eos % (Auto) % Baso % (Auto) % Neut # (Auto) (1.4-6.5) K/uL Lymph # (Auto) (1.2-3.4) K/uL [place] # (Auto) (0.24-0.82) K/uL Eos # (Auto) (0-0.50) K/uL Baso # (Auto) (0-0.2) K/uL Immature Gran # (Auto) (0.00-0.02) K/uL Platelet Estimate (Normal) Sodium 141 (136-145) mmol/L Potassium 4.7 (3.5-5.1) mmol/L Chloride 110 H (98-107) mmol/L Carbon Dioxide 26 (21-32) mmol/L Anion Gap 5 (3-11) BUN 27 H (6-23) mg/dl Creatinine 1.64 H (0.6-1.4) mg/dl Est Cr Clr Drug Dosing 35.2 ml/min Est GFR ( Amer) 44.2 ml/min Est GFR (Non-Af Amer) 38.1 ml/min BUN/Creatinine Ratio 16.5 (10-20) Glucose 92 (70-99(Fasting)) mg/dl POC Glucose (70-99) mg/dl Calcium 9.7 (8.5-10.1) mg/dl Total Bilirubin (0.2-1.0) mg/dl AST (13-39) U/L ALT (7-52) U/L Alkaline Phosphatase (34-104) U/L Troponin I High Sens 19.7 D 30.1 H (0-20) pg/ml Total Protein (6.0-8.3) gm/dl Albumin (3.4-5.0) gm/dl Globulin (2.5-4.0) gm/dl Albumin/Globulin Ratio (0.9-2) Lipase (11-82) U/L SARS-CoV-2, RNA, NAAT (NEGATIVE) 04/14/22 04/14/22 04/13/22 Range/Units 00:56 00:56 17:09 WBC 6.40 (4.8-10.8) K/ul RBC 4.80 (4.63-6.08) M/uL Hgb 14.8 (14.0-18.0) g/dl Hct 44.9 (40.1-51.0) % MCV 93.5 (80.0-100.0) fL MCH 30.8 (25.0-34.0) pg MCHC 33.0 (32.0-36.0) g/dL RDW Std Deviation 49.7 H (36.4-46.3) fL RDW Coeff of Derek 14.3 (11.5-14.5) % Plt Count 129 L (130-400) K/uL MPV 10.5 (9.4-12.4) fL Immature Gran % (Auto) 0.3 % Neut % (Auto) 67.9 % Lymph % (Auto) 19.8 % [place] % (Auto) 9.5 % Eos % (Auto) 2.2 % Baso % (Auto) 0.3 % Neut # (Auto) 4.34 (1.4-6.5) K/uL Lymph # (Auto) 1.27 (1.2-3.4) K/uL [place] # (Auto) 0.61 (0.24-0.82) K/uL Eos # (Auto) 0.14 (0-0.50) K/uL Baso # (Auto) 0.02 (0-0.2) K/uL Immature Gran # (Auto) 0.02 (0.00-0.02) K/uL Platelet Estimate (Normal) Sodium (136-145) mmol/L Potassium (3.5-5.1) mmol/L Chloride (98-107) mmol/L Carbon Dioxide (21-32) mmol/L Anion Gap (3-11) BUN (6-23) mg/dl Creatinine (0.6-1.4) mg/dl Est Cr Clr Drug Dosing ml/min Est GFR ( Amer) ml/min Est GFR (Non-Af Amer) ml/min BUN/Creatinine Ratio (10-20) Glucose (70-99(Fasting)) mg/dl POC Glucose (70-99) mg/dl Calcium (8.5-10.1) mg/dl Total Bilirubin (0.2-1.0) mg/dl AST (13-39) U/L ALT (7-52) U/L Alkaline Phosphatase (34-104) U/L Troponin I High Sens 33.0 H 23.4 H (0-20) pg/ml Total Protein (6.0-8.3) gm/dl Albumin (3.4-5.0) gm/dl Globulin (2.5-4.0) gm/dl Albumin/Globulin Ratio (0.9-2) Lipase (11-82) U/L SARS-CoV-2, RNA, NAAT (NEGATIVE) 04/13/22 04/13/22 04/13/22 Range/Units 16:17 15:43 14:40 WBC (4.8-10.8) K/ul RBC (4.63-6.08) M/uL Hgb (14.0-18.0) g/dl Hct (40.1-51.0) % MCV (80.0-100.0) fL MCH (25.0-34.0) pg MCHC (32.0-36.0) g/dL RDW Std Deviation (36.4-46.3) fL RDW Coeff of Derek (11.5-14.5) % Plt Count (130-400) K/uL MPV (9.4-12.4) fL Immature Gran % (Auto) % Neut % (Auto) % Lymph % (Auto) % [place] % (Auto) % Eos % (Auto) % Baso % (Auto) % Neut # (Auto) (1.4-6.5) K/uL Lymph # (Auto) (1.2-3.4) K/uL [place] # (Auto) (0.24-0.82) K/uL Eos # (Auto) (0-0.50) K/uL Baso # (Auto) (0-0.2) K/uL Immature Gran # (Auto) (0.00-0.02) K/uL Platelet Estimate (Normal) Sodium (136-145) mmol/L Potassium (3.5-5.1) mmol/L Chloride (98-107) mmol/L Carbon Dioxide (21-32) mmol/L Anion Gap (3-11) BUN (6-23) mg/dl Creatinine (0.6-1.4) mg/dl Est Cr Clr Drug Dosing ml/min Est GFR ( Amer) ml/min Est GFR (Non-Af Amer) ml/min BUN/Creatinine Ratio (10-20) Glucose (70-99(Fasting)) mg/dl POC Glucose 116 H 70 (70-99) mg/dl Calcium (8.5-10.1) mg/dl Total Bilirubin (0.2-1.0) mg/dl AST (13-39) U/L ALT (7-52) U/L Alkaline Phosphatase (34-104) U/L Troponin I High Sens (0-20) pg/ml Total Protein (6.0-8.3) gm/dl Albumin (3.4-5.0) gm/dl Globulin (2.5-4.0) gm/dl Albumin/Globulin Ratio (0.9-2) Lipase (11-82) U/L SARS-CoV-2, RNA, NAAT NEGATIVE (NEGATIVE) 04/13/22 04/13/22 Range/Units 14:15 14:15 WBC 5.14 (4.8-10.8) K/ul RBC 4.68 (4.63-6.08) M/uL Hgb 14.7 (14.0-18.0) g/dl Hct 44.4 (40.1-51.0) % MCV 94.9 (80.0-100.0) fL MCH 31.4 (25.0-34.0) pg MCHC 33.1 (32.0-36.0) g/dL RDW Std Deviation 49.3 H (36.4-46.3) fL RDW Coeff of Derek 14.2 (11.5-14.5) % Plt Count 140 (130-400) K/uL MPV 10.1 (9.4-12.4) fL Immature Gran % (Auto) 0.4 % Neut % (Auto) 71.3 % Lymph % (Auto) 16.5 % [place] % (Auto) 9.1 % Eos % (Auto) 2.1 % Baso % (Auto) 0.6 % Neut # (Auto) 3.66 (1.4-6.5) K/uL Lymph # (Auto) 0.85 L (1.2-3.4) K/uL [place] # (Auto) 0.47 (0.24-0.82) K/uL Eos # (Auto) 0.11 (0-0.50) K/uL Baso # (Auto) 0.03 (0-0.2) K/uL Immature Gran # (Auto) 0.02 (0.00-0.02) K/uL Platelet Estimate Normal (Normal) Sodium 140 (136-145) mmol/L Potassium 4.2 (3.5-5.1) mmol/L Chloride 109 H (98-107) mmol/L Carbon Dioxide 24 (21-32) mmol/L Anion Gap 7 (3-11) BUN 31 H (6-23) mg/dl Creatinine 1.69 H (0.6-1.4) mg/dl Est Cr Clr Drug Dosing 32.0 ml/min Est GFR ( Amer) 42.6 ml/min Est GFR (Non-Af Amer) 36.7 ml/min BUN/Creatinine Ratio 18.3 (10-20) Glucose 54 L (70-99(Fasting)) mg/dl POC Glucose (70-99) mg/dl Calcium 9.7 (8.5-10.1) mg/dl Total Bilirubin 1.0 (0.2-1.0) mg/dl AST 24 (13-39) U/L ALT 26 (7-52) U/L Alkaline Phosphatase 59 (34-104) U/L Troponin I High Sens 21.9 H (0-20) pg/ml Total Protein 6.0 (6.0-8.3) gm/dl Albumin 4.1 (3.4-5.0) gm/dl Globulin 1.9 L (2.5-4.0) gm/dl Albumin/Globulin Ratio 2.2 H (0.9-2) Lipase 41 (11-82) U/L SARS-CoV-2, RNA, NAAT (NEGATIVE) Hospital Course (1) Right-sided chest pain: 82 y/o male here for eval of recurrent right chest pain worse on palpation, which started after eating a funnel cake while out a tenriism function (04/13) - similar to CP he had earlier in the month prior to having PCI for 80% blockage in [place] on 04/02 with one stent placed and dual antiplatelet therapy initiated - now without pain and doing well. He is medically stable for discharge. #Chest pain Patient has a history of CAD s/p PCI with stent placement on 04/02/22. Suspicion for costochondritis due to the reproducibility of the pain with palpation. EKG showed bi/trigeminy without territorial ST wave changes. hsTrop minimally elevated - peaked at 33.0. Cath record obtained. Left main coronary with mild diffuse irregularity without flow-limiting lesions, LAD with 75 to 80% mid segment stenosis, left circumflex dominant with multiple marginal branches mild diffuse disease, right coronary small size nondominant with diffuse irregularity. Successful PCI with JAMES to mid LAD. Patient d/c on aspirin and Brilinta, metoprolol 25 mg succinate daily, atorvastatin 40 mg nightly. Continue Plavix 75 mg QD, ASA 81 mg QD. #Elevated troponin hsTrop minimally elevated peaked at 33.0 and has since downtrended to 19.7. Demand versus residual following stenting. Patient pain-free on assessment. #Hx of DVT Patient has a hx of DVT, but cannot remember the specifics - notes a previous blood clot in his leg that he was put on ASA for, was on Xarelto for DVT ppx after RTHR, but never a prolonged course. He currently has right calf pain. CTA did not show evidence of PEs. Could have been a superficial thrombosis. RLE Doppler showed no signs of DVT #Arthritis Patient has a history of arthritis previously treated with Celebrex - recently d/c due to heart concerns. Continue Tylenol, Voltaren, lidocaine. #CAD See above. #Pancreatic insufficiency Patient has a history of pancreatic insufficiency with a history of bowel resection for recurrent obstruction. Continue Creon - patient requesting 72,000 with meals instead of 10,050 TID. No acute exacerbation. Continue home dose on discharge. DVT prophylaxis: Lovenox Diet: Heart healthy Disposition: d/c home CODE STATUS: Full code, discussed with patient on admission. Would not want prolonged ventilation, but would want CPR/intubation temporarily with further decision-making by his family if inconsistent with a quality of life he would want (2) Elevated troponin: (3) DVT (deep venous thrombosis): (4) Coronary artery disease: (5) Arthritis: (6) Pancreatic insufficiency: Total Time Total Time Spent Total Time Spent (In Minutes): <30. Discharge Plan Discharge Items Patient Disposition: Home - Self-Care Reason For Visit: CHEST PAIN R/O, HX PCI Discharge Diagnosis: Costochondritis Activity: Per Instructions section Non-emergency contact: Primary Care Provider and Family Development Extension Specialist Call non-emergency contact if: your symptoms worsen and your pain is concerning for you Follow-up/Referrals: PCP,NO [Primary Care Provider] - Diet: Heart Healthy Addtl Attending Provider Instructions: You were seen here for chest pain, which has since resolved. This was likely a muscle or rib pain and not related to your heart. Continue with your home medications. Follow up with your PCP and malt loader. Pending Studies at Discharge: No Stand-Alone Forms: [employer] Smoking Cessation Medications and DC Order Prescriptions: Continued atorvastatin 40 mg Tablet 40 mg PO HS aspirin 81 mg Capsule,Delayed Release(Dr/Ec) 81 mg PO DAILY ropinirole 2 mg Tablet 2 mg PO DAILY calcium carbonate-vitamin D3 [Calcium 500 + D] 500 mg-10 mcg (400 unit) Tablet 1 tab PO DAILY ticagrelor 90 mg Tablet 90 mg PO BID Creon 36,000-114,000- 180,000 unit Capsule,Delayed Release(Dr/Ec) 1 cap PO TIDM albuterol sulfate 18 G 18 g inhalation Q6H PRN (Reason: sob/wHEEZING) doxycycline monohydrate 100 MG 100 mg PO DAILY gabapentin 300 MG 300 mg PO DAILY metoprolol succinate 25 MG 25 mg PO DAILY Discharge Orders: Discharge Order (Routine); Ordered 04/14/22 Ordered By: Leatha Pan Admission Data Admit Date/Time: 04/13/22 16:42 Attending Provider: Joseph Ochoa Admit Provider: Jose Saleh Primary Care Provider: PCP,NO Other Providers: Jose Saleh Other Interventions: Discharge Summary Assessment (RN) Last Done: 04/14/22 15:23 Supervising Physician Co-Signing Physician Notes I personally examined the patient and verified all bacon points of history and exam, discussed case, and agree with decision making with Dr Pan. feeling better pain totally gone wants to go home. has appt w PCP tomorrow. cardiology appt being moved up per last hospital discharge Vitals noted, in general he is awake and alert pleasant no distress. HEENT normocephalic atraumatic mucous membranes moist. Breathing unlabored no accessory muscle use good effort. Skin shows no rashes no pallor or icterus. Chest wall nontender. Chest painnonspecificstable for home. Outpatient PCP follow-up tomorrow. Cardiology follow-up originally scheduled for about a month from ellie notes that whenever he was last discharged in [place] they were trying to move that up, we will see if we are able to affect any sooner appointment as well. Resident Activity Tracking Resident Involvement: Resident Care Provided Care Provided: Adult Hospital Medicine
--- NOTE | 2022-04-14 18:28 | Billing Data ---
Date of Service April 14, 2022 Coding Level of Care Code 53993 OBS Care - Discharge
== END 2022-04-14 15:55 | disposition home or self-care (01) ==
LOC: ED 14:00 → 2N 14:00 → SUATTDRO 16:42 → 2N 18:12